=== PATIENT | male | born 1940 | race Caucasian/White ===

== ENCOUNTER 2023-01-23 11:57 | Outpatient (CLI) | payer MEDICARE | END 2023-01-23 11:58 | disposition home or self-care (01) | LOC: CSHMRI 11:57 | PROVIDERS: ATTEND Surgery | DX: R29.898 Other symptoms and signs involving the musculoskeletal system (principal); M48.061 Spinal stenosis, lumbar region without neurogenic claudication; M47.816 Spondylosis without myelopathy or radiculopathy, lumbar region; I71.40 Abdominal aortic aneurysm, without rupture, unspecified | CPT/HCPCS: 72120; 72148 ==

== ENCOUNTER 2023-01-23 13:15 | Observation (INO) | payer MEDICARE ==
[2023-01-23 14:17] LABS: Bilirubin Neg (Negative); Blood, Urine Negative (Negative); Clarity Clear (Clear); Glucose, Urine (Dipstick) 250 mg/dL (Negative); Ketone, Urine Negative (Negative); Leukocyte Negative (Negative); Nitrite Negative (Negative); Protein, Urine (Dipstick) 15 mg/dl (Neg-Trace); Urobilinogen Normal mg/dL (Less than 2)
[2023-01-23 14:37] LABS: #Eosinphils 0.3 10x3/uL (0.0-0.5); #Monocytes 0.8 10x3/uL (0.0-1.1); #Neutrophils 6.3 10x3/uL (1.5-8.4); %Basophils 0.5 % (0.0-2.0); %Eosinophils 3.1 % (0.0-6.0); %Monocytes 9.7 % (0.0-10.0); %Neutrophils 74.1 % (40.0-75.0); Hemoglobin 10.6 g/dL (13.5-17.5); Mean Corpuscular HGB CONC 32.4 g/dL (32.0-36.0); Mean Corpuscular Hemoglobin 29.4 pg (27.0-33.0); Mean Corpuscular Volume 90.8 fl (81.2-95.1); Mean Platelet Volume 10.6 fl (7.4-10.4); Platelet Count 287 10x3/uL (150-450); RBC Distribution Width 14.1 % (11.5-14.5); White Blood Cell (WBC) Count 8.5 10x3/uL (3.5-10.5)
[2023-01-23 14:39] LABS: INR-International Normal Ratio 0.9; PTT 27.4 sec (22.0-33.0); Prothrombin Time 9.5 sec (9.5-12.1)
[2023-01-23 14:40] LABS: ALT (SGPT) 14 U/L (8-55); AST (SGOT) 18 U/L (5-34); Albumin 4.3 g/dL (3.4-4.8); Alkaline Phosphatase 49 U/L (40-110); Anion Gap 15 mmol/L (10-20); BUN (Urea Nitrogen) 24 mg/dL (8.4-25.7); Bilirubin, Total 0.7 mg/dL (0.2-1.2); CK (CPK) 86 U/L (30-200); Calc. Creatinine Clearance 0 mL/min (70-130); Calcium 9.3 mg/dL (7.8-10.44); Carbon Dioxide 25 mmol/L (23-31); Chloride 100 mmol/L (98-107); Estimated GFR 62; Globulin 3.1 g/dL (2.4-3.5); Glucose 233 mg/dL (83-110); Lipase 32 U/L (8-78); Magnesium 2.1 mg/dL (1.6-2.6); Potassium 4.1 mmol/L (3.5-5.1); Protein, Total 7.4 g/dL (5.8-8.1); Sodium 136 mmol/L (136-145)
[2023-01-23] MEDS ORDERED: Ondansetron PF 4 MG/2 ML Vial ONE (14:57)
[2023-01-23] MEDS ORDERED: Morphine 4 MG/ML VIAL ONE (14:57)
[2023-01-23 15:14] LABS: SARS-CoV-2 NAA Rapid Test DETECTED (NotDetected)
[2023-01-23 17:35] VITALS: BMI 32.1
[2023-01-23 18:06] LABS: Troponin I Less than 0.010 ng/mL (< 0.028)
[2023-01-23] MEDS ORDERED: Acetaminophen 325 MG TAB PO PRN (19:01)
[2023-01-23] MEDS ORDERED: Ondansetron ODT 4 MG TAB PO PRN (19:01)
[2023-01-23] MEDS ORDERED: Senokot S 8.6-50 MG TAB PO PRN (19:01)
[2023-01-23] MEDS ORDERED: Benzonatate 100 MG CAP PO PRN (19:03)
[2023-01-23] MEDS ORDERED: Dextrose 50% Abboject 50 ML SYRINGE SLOW IVP PRN (19:05)
[2023-01-23] MEDS ORDERED: HumaLOG 300 UNITS/3 ML VIAL SC PRN (19:05)
[2023-01-23] MEDS ORDERED: Dextrose 5% in Water 1,000 ML IV PRN (19:05)
[2023-01-23] MEDS ORDERED: Ventolin HFA Inhaler 60 PUFF INHALER INH PRN (19:13)
[2023-01-23] MEDS ORDERED: Sodium Chloride 0.9% 1,000 ML IV SCH (19:15)
[2023-01-23 20:47] LABS: Troponin I Less than 0.010 ng/mL (< 0.028)
[2023-01-23] MEDS ORDERED: rOPINIRole HCl 1 MG TAB PO SCH (21:00)
[2023-01-23] MEDS: HYDROcodone/Acetaminophen 5/325 mg Tablet PO PRN (22:09)
[2023-01-23] MEDS: rOPINIRole HCl 1 MG TAB PO SCH (22:09)
[2023-01-23] MEDS: Gabapentin 300 MG CAP PO SCH (22:10)
[2023-01-23] MEDS: Rosuvastatin 20 MG TAB PO SCH (22:10)
[2023-01-24 07:15] LABS: #Eosinphils 0.3 10x3/uL (0.0-0.5); #Monocytes 0.9 10x3/uL (0.0-1.1); #Neutrophils 6.2 10x3/uL (1.5-8.4); %Basophils 0.2 % (0.0-2.0); %Lymphocytes 9.6 % (18.0-47.0); %Monocytes 11.2 % (0.0-10.0); %Neutrophils 75.4 % (40.0-75.0); Mean Corpuscular Hemoglobin 28.9 pg (27.0-33.0); Mean Corpuscular Volume 90.5 fl (81.2-95.1); Mean Platelet Volume 10.4 fl (7.4-10.4); Platelet Count 256 10x3/uL (150-450); RBC Distribution Width 14.1 % (11.5-14.5); White Blood Cell (WBC) Count 8.2 10x3/uL (3.5-10.5)
[2023-01-24] MEDS: HumaLOG 300 UNITS/3 ML VIAL SC PRN ×2 (07:25→16:57)
[2023-01-24 07:36] LABS: Anion Gap 14 mmol/L (10-20); BUN (Urea Nitrogen) 20 mg/dL (8.4-25.7); CRP (Inflammatory) 15.51 mg/dL (= or < 0.5); Calc. Creatinine Clearance 77 mL/min (70-130); Calcium 9.2 mg/dL (7.8-10.44); Carbon Dioxide 26 mmol/L (23-31); Chloride 98 mmol/L (98-107); Estimated GFR 70; Glucose 244 mg/dL (83-110); Potassium 4.3 mmol/L (3.5-5.1); Sodium 134 mmol/L (136-145)
[2023-01-24] MEDS: Gabapentin 300 MG CAP PO SCH ×2 (09:14→22:32)
[2023-01-24] MEDS: HYDROcodone/Acetaminophen 5/325 mg Tablet PO PRN ×2 (09:14→22:33)
[2023-01-24] MEDS: Ascorbic Acid 500 mg Chewable Tablet PO SCH (09:14)
[2023-01-24] MEDS: Cholecalciferol (Vitamin D3) 400 UNITS TAB PO SCH (09:14)
[2023-01-24] MEDS: Zinc Sulfate 220 MG CAP PO SCH (09:14)
[2023-01-24] MEDS: rOPINIRole HCl 1 MG TAB PO SCH ×4 (09:15→22:34)
[2023-01-24] MEDS: Aspirin 81 mg Enteric Coated Tablet PO SCH (09:15)
[2023-01-24] MEDS: Clopidogrel Bisulfate 75 MG TAB PO SCH (09:15)
[2023-01-24] MEDS ORDERED: tiZANidine HCl 4 MG TAB PO PRN (14:55)
[2023-01-24] MEDS: metFORMIN 500 MG TAB PO SCH (16:57)
[2023-01-24] MEDS: Rosuvastatin 20 MG TAB PO SCH (22:34)
[2023-01-25 05:23] LABS: #Eosinphils 0.3 10x3/uL (0.0-0.5); #Monocytes 1.2 10x3/uL (0.0-1.1); #Neutrophils 7.1 10x3/uL (1.5-8.4); %Basophils 0.3 % (0.0-2.0); %Lymphocytes 10.4 % (18.0-47.0); %Monocytes 12.3 % (0.0-10.0); %Neutrophils 73.3 % (40.0-75.0); Hemoglobin 11.5 g/dL (13.5-17.5); Mean Corpuscular HGB CONC 31.9 g/dL (32.0-36.0); Mean Corpuscular Volume 90.9 fl (81.2-95.1); Mean Platelet Volume 10.5 fl (7.4-10.4); Platelet Count 284 10x3/uL (150-450); Red Blood Cell (RBC) Count 3.97 10x6/uL (4.32-5.72); White Blood Cell (WBC) Count 9.7 10x3/uL (3.5-10.5)
[2023-01-25 05:29] LABS: Anion Gap 15 mmol/L (10-20); BUN (Urea Nitrogen) 26 mg/dL (8.4-25.7); Calc. Creatinine Clearance 75 mL/min (70-130); Calcium 9.9 mg/dL (7.8-10.44); Carbon Dioxide 26 mmol/L (23-31); Chloride 99 mmol/L (98-107); Estimated GFR 68; Glucose 267 mg/dL (83-110); Potassium 4.5 mmol/L (3.5-5.1); Sodium 135 mmol/L (136-145)
[2023-01-25] MEDS: HumaLOG 300 UNITS/3 ML VIAL SC PRN (06:32)
[2023-01-25] MEDS ORDERED: Lisinopril 5 MG TAB PO SCH (09:00)
[2023-01-25] MEDS: metFORMIN 500 MG TAB PO SCH (11:27)
[2023-01-25] MEDS: Zinc Sulfate 220 MG CAP PO SCH (11:27)
[2023-01-25] MEDS: Gabapentin 300 MG CAP PO SCH (11:28)
[2023-01-25] MEDS: Alogliptin 25 MG TAB PO SCH (11:28)
[2023-01-25] MEDS: Cholecalciferol (Vitamin D3) 400 UNITS TAB PO SCH (11:28)
[2023-01-25] MEDS: Clopidogrel Bisulfate 75 MG TAB PO SCH (11:29)
[2023-01-25] MEDS: rOPINIRole HCl 1 MG TAB PO SCH (11:29)
[2023-01-25] MEDS: Aspirin 81 mg Enteric Coated Tablet PO SCH (11:29)
[2023-01-25] MEDS: Ascorbic Acid 500 mg Chewable Tablet PO SCH (11:29)
[2023-01-25 13:50] VITALS: BP 120/70; TEMP 98.7
== END 2023-01-25 13:15 | disposition home or self-care (01) ==
LOC: CSHERS 13:15 → CSHTELE 16:53
PROVIDERS: ADMIT Family Medicine; ATTEND Family Medicine
DX: R55 Syncope and collapse (principal); R07.9 Chest pain, unspecified; I25.10 Atherosclerotic heart disease of native coronary artery without angina pectoris; E78.5 Hyperlipidemia, unspecified; I10 Essential (primary) hypertension; D50.9 Iron deficiency anemia, unspecified; I35.0 Nonrheumatic aortic (valve) stenosis; R53.1 Weakness; R29.6 Repeated falls; U07.1 COVID-19; S92.512A Displaced fracture of proximal phalanx of left lesser toe(s), initial encounter for closed fracture; E11.40 Type 2 diabetes mellitus with diabetic neuropathy, unspecified; I25.2 Old myocardial infarction; G25.81 Restless legs syndrome; Z79.02 Long term (current) use of antithrombotics/antiplatelets; Z79.82 Long term (current) use of aspirin; Z79.84 Long term (current) use of oral hypoglycemic drugs; Z79.899 Other long term (current) drug therapy; Z95.5 Presence of coronary angioplasty implant and graft
CPT/HCPCS: 0240U; 29515; 70450; 70551; 71045; 72120; 72125; 72148; 73630; 80048 ×2; 80053; 81003; 82550; 82962; 83605; 83690; 83735 ×2; 83880; 84443; 84484 ×2; 85025 ×3; 85610; 85730; 86140; 86850; 86900; 86901; 93005; 93306; 94760 ×3; 94799; 96372; 96374; 96375; 97116 ×2; 97530; 97535; 99285; G0378 ×4; 36415; 36416; 82274; J1650; J2270; J2405; J7050

== ENCOUNTER 2023-09-09 13:49 | Outpatient (CLI) | payer MEDICARE | END 2023-09-09 13:50 | disposition home or self-care (01) | LOC: CSHMRI 13:49 | PROVIDERS: ATTEND Psychiatry & Neurology Sleep Medicine | DX: R56.9 Unspecified convulsions (principal); I67.9 Cerebrovascular disease, unspecified; G31.9 Degenerative disease of nervous system, unspecified | CPT/HCPCS: 70551 ==

== ENCOUNTER 2024-10-07 14:53 | Outpatient (CLI) | payer MEDICARE | END 2024-10-07 14:54 | disposition home or self-care (01) | LOC: CSHMRI 14:53 | PROVIDERS: ATTEND Psychiatry & Neurology Neurology | DX: M54.16 Radiculopathy, lumbar region (principal); Z98.890 Other specified postprocedural states; M48.061 Spinal stenosis, lumbar region without neurogenic claudication | CPT/HCPCS: 72148 ==